=== PATIENT | female | born 1985 | race Caucasian/White ===

== ENCOUNTER 2018-04-27 10:42 | Emergency (ER) | payer MEDICAID ==
[~2018-04-27] VITALS: Ht 160 cm; Wt 61.4 kg
[2018-04-27 10:42] VITALS: TEMP 97.6
[2018-04-27] MEDS ORDERED: SEROQUEL50 MG PO (10:49)
[2018-04-27] MEDS ORDERED: SYNTHROID 0.10.15 MG PO (10:49)
[2018-04-27] MEDS ORDERED: LIORESAL20 MG PO (10:50)
[2018-04-27] MEDS ORDERED: B COMPLEX #11 TA1 PO (10:51)
[2018-04-27] MEDS ORDERED: ZOLOFT 100MG100 MG PO (10:51)
[2018-04-27] MEDS ORDERED: NEURONTIN400 MG/CAP PO (10:52)
[2018-04-27 11:06] LABS: COLLECTION METHOD CLEAN CATCH
[2018-04-27 11:12] LABS: BASO % 0.8 % (0.0-2.0); EOS # 0.1 (0.0-0.7); EOS % 3.5 % (0-4.0); GRAN # 1.6 (1.4-6.5); GRAN % 42.9 % (42.2-75.2); HEMATOCRIT 39.6 % (37.0-47.0); HEMOGLOBIN 13.4 g/dl (12.5-16.0); LYMPH # 1.6 (1.2-3.4); LYMPH % 44.4 % (20.0-51.0); MEAN CELL VOLUME 91 fl (80.0-100.0); MEAN CORPUSCULAR HEMOGLOBIN 31 pg (27.0-31.0); MEAN CORPUSCULAR HGB CONC 34 g/dl (33.0-37.0); MONO # 0.3 (0.1-0.6); MONO % 7.9 % (1.7-9.3); PLATELET COUNT 236 K/mm3 (130-400); RED BLOOD COUNT 4.34 M/mm3 (4.10-5.30); REDCELL DISTRIBUTION WIDTH-CV 12.2 % (11.5-14.5)
[2018-04-27 11:15] LABS: PH 7 (5-8); SQUAMOUS EPITHELIAL None Seen /hpf; URINE APPEARANCE Clear; URINE BACTERIA None Seen /hpf; URINE BILIRUBIN Negative (NEGATIVE); URINE BLOOD 1+ (NEGATIVE); URINE COLOR Straw; URINE GLUCOSE Negative (NEGATIVE); URINE KETONE Negative (NEGATIVE); URINE LEUKOCYTE ESTERASE Negative (NEGATIVE); URINE NITRATE Negative (NEGATIVE); URINE PROTEIN(semi-quant) Negative (NEGATIVE); URINE RBC 0-2 /hpf; URINE UROBILINOGEN Negative (NEGATIVE)
[2018-04-27 11:24] LABS: ALANINE AMINOTRANSFERASE 46 U/L (9-52); ALBUMIN 4.3 gm/dL (3.5-5.0); ALKALINE PHOSPHATASE 59 U/L (50-136); ANION GAP 13 mmol/L (7-16); AST,SGOT 43 U/L (15-37); BILIRUBIN,TOTAL 0.4 mg/dL (0.0-1.0); BLOOD UREA NITROGEN 10 mg/dL (7-17); CALCIUM 9.5 mg/dL (8.4-10.2); CARBON DIOXIDE 22 mmol/L (22-30); CHLORIDE 106 mmol/L (98-107); CREATININE, serum 0.66 mg/dL (0.52-1.25); GLUCOSE 116 mg/dL (74-106); MAGNESIUM 1.7 mg/dL (1.6-2.3); PHOSPHOROUS 3.5 mg/dL (2.5-4.5); SODIUM 141 mmol/L (137-145); TOTAL PROTEIN 7.5 gm/dL (6.4-8.2)
[2018-04-27 12:10] LABS: TROPONIN-I < 0.012 ng/mL (0.000-0.034)
[2018-04-27] MEDS ORDERED: ANTIVERT 25MG25 MG PO (12:12)
[2018-04-27] MEDS ORDERED: NORCO 325 MG-51 TAB PO (14:50)
[2018-04-27 15:02] VITALS: BP 127/80; PULSE 80
== END 2018-04-27 15:03 | disposition home or self-care (01) ==
LOC: COL.ER 10:42
PROVIDERS: Emergency Medicine
DX: R42 Dizziness and giddiness (principal); E89.0 Postprocedural hypothyroidism; M54.5 Low back pain
CPT/HCPCS: J7120